=== PATIENT | female | born 1945 | race Caucasian/White ===

== ENCOUNTER 2019-06-01 11:20 | Emergency (ER) | payer OTHER ==
[2019-06-01 11:27] VITALS: BP 189/86; PULSE 61; TEMP 99.4; BMI 27.3
--- NOTE | 2019-06-01 11:52 | PDOC ---
History of Present Illness - General Chief Complaint: Wound Stated Complaint: wound right finger Time Seen by Provider: 06/01/19 11:39 - History of Present Illness Initial Comments: 06/01/19 11:49 73-year-old female presents for evaluation of right thumb bleeding. She has had a lesion on her thumb for the last month without systemic symptoms she contused her thumb yesterday and the lesion began to bleed. She controlled with direct pressure and came to the ER today Past History - Past Medical History Allergies/Adverse Reactions: Allergies Allergy/AdvReac Type Severity Reaction Status Date / Time No Known Allergies Allergy Verified 06/01/19 11:27 Cardiac Disorders: Yes (Bypass) COPD: No Diabetes: Yes HTN: Yes - Surgical History Cardiac Surgery: Yes (bypass) - Psycho Social/Smoking Cessation Hx Smoking History: Never smoked Information on smoking cessation initiated: No Hx Alcohol Use: No Drug/Substance Use Hx: No Review of Systems - Review of Systems Constitutional: Yes: See HPI *Physical Exam - Vital Signs Last Vital Signs Temp Pulse Resp BP Pulse Ox 99.4 F 61 18 189/86 H 98 06/01/19 11:22 06/01/19 11:22 06/01/19 11:22 06/01/19 11:22 06/01/19 11:22 - Physical Exam Comments: 06/01/19 11:50 There is a subcentimeter circular lesion on the volar aspect of the left thumb on the skin overlying the IPJ. No gross sensorimotor deficits neurovascular intact the lesion is oozing Medical Decision Making - Medical Decision Making 06/01/19 11:51 Dressing applied patient advised to follow-up with dermatology for biopsy Discharge - Discharge Information Problems reviewed: Yes Clinical Impression/Diagnosis: Lesion of thumb Condition: Stable Disposition: HOME - Admission No - Follow up/Referral Referrals: Tg Cardona MD [Staff Physician] - - Patient Discharge Instructions Additional Instructions: Please follow-up with dermatology in 1 to 2 days for further evaluation and treatment options. Leave the dressing on until seen by dermatology. Do not get the dressing wet. Follow-up with dermatology without fail. Return to the emergency room for further issues. - Post Discharge Activity
== END 2019-06-01 12:12 | disposition home or self-care (01) ==
LOC: JERFT 11:20
DX: L98.8 Other specified disorders of the skin and subcutaneous tissue (principal); S61.001A Unspecified open wound of right thumb without damage to nail, initial encounter; X58.XXXA Exposure to other specified factors, initial encounter; Y93.9 Activity, unspecified; Y92.89 Other specified places as the place of occurrence of the external cause; Y99.8 Other external cause status; I25.10 Atherosclerotic heart disease of native coronary artery without angina pectoris; I10 Essential (primary) hypertension; Z95.1 Presence of aortocoronary bypass graft; E11.9 Type 2 diabetes mellitus without complications
CPT/HCPCS: 99281-25

== ENCOUNTER 2024-06-15 05:16 | Day surgery (SDC) | payer OTHER ==
[2024-06-13 11:46] VITALS: BMI 28.3
[2024-06-15] MEDS: TRYPAN BLUE 0.5 ML DISP.SYRIN IO ONE
[2024-06-15] MEDS ORDERED: TRYPAN BLUE 0.5 ML DISP.SYRIN ONE (07:37)
[2024-06-15] MEDS ORDERED: LIDOCAINE HCL/PF 1% SDV 5ML VIAL ONE (07:37)
[2024-06-15] MEDS ORDERED: EPINEPHrine/PF 1 MG/1 ML (1:1,000) AMPULE ONE (07:37)
[2024-06-15] MEDS ORDERED: POVIDONE-IODINE 5% OPHTHALMIC PREP 30 ML SOLUTION ONE (07:37)
[2024-06-15] MEDS ORDERED: KETOROLAC TROMETHAMINE 0.5% EYE DROP 1 DROP DROPS ONE (08:55)
[2024-06-15] MEDS ORDERED: PHENYLEPHRINE 2.5% OPTHALMIC DROP 2ML BOTTLE ONE (08:55)
[2024-06-15] MEDS ORDERED: CYCLOPENTOLATE HCL 1% OPHTH SOLN 2 ML BOTTLE ONE (08:56)
[2024-06-15] MEDS ORDERED: OFLOXACIN 0.3% OPHTHALMIC SOLUTION 5 ML BOTTLE ONE (08:56)
[2024-06-15] MEDS ORDERED: TROPICAMIDE 1% OPHTH SOLN 15 ML BOTTLE ONE (08:56)
[2024-06-15] MEDS: PHENYLEPHRINE 2.5% OPHTH SOLN 15 ML BOTTLE OP SCH (09:00)
[2024-06-15] MEDS: TROPICAMIDE 1% OPHTH SOLN 15 ML BOTTLE OP SCH (09:00)
[2024-06-15] MEDS: OFLOXACIN 0.3% OPHTHALMIC SOLUTION 5 ML BOTTLE OP SCH (09:00)
[2024-06-15] MEDS: KETOROLAC TROMETHAMINE 0.5% EYE DROP 1 DROP DROPS OP SCH (09:06)
[2024-06-15] MEDS: CYCLOPENTOLATE HCL 1% OPHTH SOLN 2 ML BOTTLE OP SCH (09:07)
[2024-06-15] MEDS ORDERED: MIDAZOLAM HCL 2 MG/2 ML SINGLE DOSE VIAL ONE (10:15)
[2024-06-15] MEDS: TETRACAINE 0.5% OPHTH SOLN 2 ML BOTTLE OD ONE ×2 (10:27)
[2024-06-15] MEDS: POVIDONE-IODINE 5% OPHTHALMIC PREP 30 ML SOLUTION OD ONE ×2 (10:30)
[2024-06-15] MEDS: CHONDROITIN SU A/HYALUR SOD 1 KIT IO ONE ×2 (10:43)
[2024-06-15] MEDS: BSS (NA/CA/MG/K) BALANCED SALT SOLUTION OPHTH SOLN 15 ML BOTTLE OD ONE ×2 (10:44)
[2024-06-15] MEDS: LIDOCAINE HCL 1% PRESERVATIVE FREE - 30ML VIAL IO ONE ×2 (10:44)
[2024-06-15] MEDS: EPINEPHrine/PF 1 MG/1 ML (1:1,000) AMPULE IO ONE ×2 (10:47)
[2024-06-15 11:25] VITALS: RESP 20
[2024-06-15 12:05] VITALS: BP 128/68; PULSE 68; TEMP 97.5
== END 2024-06-15 12:06 | disposition home or self-care (01) ==
LOC: JASU-SURG 05:16
PROVIDERS: ATTEND Ophthalmology
PROC: 08RK3JZ Replacement of Left Lens with Synthetic Substitute, Percutaneous Approach (ICD-10-PCS; principal; 2024-06-15 10:00)
DX: H26.9 Unspecified cataract (principal)
CPT/HCPCS: 82962; V2632